=== PATIENT | female | born 1970 | race Caucasian/White ===

== ENCOUNTER 2020-09-24 11:03 | Emergency (ER) | payer OTHER ==
[~2020-09-24] VITALS: Ht 157.5 cm; Wt 73.9 kg
[~2020-09-24 11:03] MED LIST: HYDROCODONE PO; IBUPROFEN PO; LEVAQUIN 500 M500 M1 PO; PREDNISONE 10 M10 MG PO; ROBITUSSIN DM118 ML PO; VENTOLIN HFA 1818 GM INH
[2020-09-24] MEDS ORDERED: NEURONTIN300 MG PO (11:26)
[2020-09-24] MEDS ORDERED: FISH OIL 1,0001 EAC9 PO (11:27)
[2020-09-24] MEDS ORDERED: FEMARA2.5 MG PO (11:27)
[2020-09-24] MEDS ORDERED: ZOLOFT25 MG PO (11:27)
[2020-09-24 11:45] LABS: ABSOLUTE NEUTROPHILS 6.5 thou/uL (1.4-8.2); BASOPHILS 1.4 % (0.0-2.0); EOSINOPHILS 1.9 % (0.0-3.0); HEMOGLOBIN 14.5 gm/dL (12.0-15.0); LYMPHOCYTES 27.4 % (24.0-44.0); MCH 29.7 pg (26.0-34.0); MCHC 34.4 g/dL (28.0-37.0); MCV 86.4 fL (80.0-100.0); PLATELET COUNT 243 thou/uL (150-400); POLYS 65.3 % (36.0-66.0); RBC 4.86 mil/uL (4.20-5.00)
[2020-09-24 11:46] LABS: ANION GAP 13 mmol/L (7-16); BUN 9 mg/dL (7-18); CALCIUM 9.2 mg/dL (8.5-10.1); CHLORIDE 100 mmol/L (98-107); CO2 24 mmol/L (21-32); CREATININE 0.8 mg/dL (0.6-1.0); GLUCOSE 329 mg/dL (74-106); POTASSIUM 4.2 mmol/L (3.5-5.1); SODIUM 137 mmol/L (136-145)
[2020-09-24 11:56] LABS: ALBUMIN 3.7 g/dL (3.4-5.0); SGOT 24 U/L (15-37); SGPT 67 U/L (14-59); TOTAL BILIRUBIN 0.4 mg/dL (0.2-1.0); TOTAL PROTEIN 7.6 g/dL (6.4-8.2); TROPONIN-I <0.06 ng/mL (<0.06)
--- NOTE | 2020-09-24 12:18 | EKG ---
[address] [place] [address] ELECTROCARDIOGRAM REPORT Name: CHRISTOPHER ROBERTS Room #: REG [facility] [id number] Admission: 09/24/20 Attend Phys: Discharge: Date of : 66 Report #: [id number] [facility] ED Test Date: 2020-09-24 Test Time: 11:07:56 Pat Name: CHRISTOPHER ROBERTS Department: Room: Gender: F Diamond Expert: FLOR : 1970 Requested By: Radha Vogel Order Number: [id number] MD: Luis Carlos Coelho Measurements Intervals Alpha Rate: 86 P: 26 RI: 148 QRS: -10 QRSD: 84 T: -1 QT: 363 QTc: 434 Interpretive Statements Sinus rhythm Abnormal R-wave progression, late transition Borderline T abnormalities, diffuse leads No previous ECG available for comparison Electronically Signed On 09-24-2020 12:17:59 CDT by Luis Carlos Coelho [email or web address] <ELECTRONICALLY SIGNED> By: Luis Carlos Coelho MD, [facility] 09/24/20 1217 1107 1107 Luis Carlos Coelho MD, FACC /EPI
[2020-09-24 14:40] VITALS: BP 112/66
[2020-09-24] MEDS ORDERED: OMEPRAZOLE40 MG PO (15:25)
[2020-09-24] MEDS ORDERED: CARAFATE 1 GM TA1 G1 PO (15:25)
== END 2020-09-24 15:45 | disposition home or self-care (01) ==
LOC: ER 11:03
PROVIDERS: Physician Assistant
DX: K29.70 Gastritis, unspecified, without bleeding (principal); F17.210 Nicotine dependence, cigarettes, uncomplicated; Z88.1 Allergy status to other antibiotic agents; Z88.5 Allergy status to narcotic agent; Z90.710 Acquired absence of both cervix and uterus; Z85.3 Personal history of malignant neoplasm of breast